=== PATIENT | male | born 1945 | race Caucasian/White ===

== ENCOUNTER → 2017-08-24 | Outpatient (CLI) | payer MEDICARE, OTHER ==
--- NOTE | 2017-08-24 12:25 | REP ---
UNILATERAL LEFT RIBS, PA CHEST, SIX VIEWS: HISTORY: Contusion. Linear densities are present in the right lower lobe, consistent with atelectasis or scar. The left lung is clear. The heart is normal in size. The pulmonary vasculature is normal in appearance. The bony structure is intact. IMPRESSION: Right lower lobe atelectasis or scar. Signed by Raul Tao MD 08/24/2017 12:26 P
== END ==
LOC: M WUC 11:09
PROVIDERS: ATTEND Physician Assistant
DX: S20.212A Contusion of left front wall of thorax, initial encounter (principal); X58.XXXA Exposure to other specified factors, initial encounter; Y93.9 Activity, unspecified; Y92.9 Unspecified place or not applicable; Y99.8 Other external cause status

== ENCOUNTER → 2018-06-01 | Outpatient (CLI) | payer OTHER | LOC: M WUC 09:36 | DX: M79.672 Pain in left foot (principal) | CPT/HCPCS: 73630 ==

== ENCOUNTER → 2018-08-13 | Outpatient (CLI) | payer OTHER ==
[2018-08-13 17:58] LABS: ANION GAP 8 MEQ/L (8-16); BLOOD UREA NITROGEN 15 MG/DL (7-18); CALCIUM LEVEL 8.3 MG/DL (8.8-10.2); CARBON DIOXIDE LEVEL 28 MEQ/L (21-32); CHLORIDE LEVEL 107 MEQ/L (98-107); CREATININE FOR GFR 0.98 MG/DL (0.70-1.30); GLOMERULAR FILTRATION RATE > 60.0 (>42); GLUCOSE, FASTING 108 MG/DL (70-100); POTASSIUM SERUM 4.2 MEQ/L (3.5-5.1); SODIUM LEVEL 143 MEQ/L (136-145)
== END ==
LOC: M WUC 13:27
DX: I10 Essential (primary) hypertension (principal)
CPT/HCPCS: 80048

== ENCOUNTER → 2019-03-14 | Outpatient (CLI) | payer OTHER ==
[2019-03-14 12:41] LABS: BASO % 0.1 % (0.0-1.0); HEMATOCRIT 33.7 % (42.0-52.0); HEMOGLOBIN 10.8 g/dl (13.5-17.5); LYMPH % 13.4 % (24.0-44.0); MEAN CORPUSCULAR HEMOGLOBIN 29.9 pg (27.0-33.0); MEAN CORPUSCULAR VOLUME 93.4 fl (80.0-96.0); MONO # 0.9 10^3/uL (0.0-0.8); MONO % 6.2 % (0.0-5.0); NEUTROPHILS # 12.1 10^3/uL (1.8-7.7); NEUTROPHILS % 79.7 % (36.0-66.0); PLATELET COUNT, AUTOMATED 249 10^3/uL (150-450); RED BLOOD COUNT 3.61 10^6/uL (4.30-6.10); WHITE BLOOD COUNT 15.2 10^3/uL (4.0-10.0)
[2019-03-14 13:35] LABS: ALBUMIN 3.8 GM/DL (3.2-5.2); BILIRUBIN,TOTAL 0.3 MG/DL (0.2-1.0); CALCIUM LEVEL 9.1 MG/DL (8.8-10.2); CHOLESTEROL RISK RATIO 3.615 (<5); CREATININE FOR GFR 1.62 MG/DL (0.70-1.30); GLOMERULAR FILTRATION RATE 44.6 (>42); POTASSIUM SERUM 4.3 MEQ/L (3.5-5.1); TOTAL PROTEIN 6.6 GM/DL (6.4-8.2)
[2019-03-14 14:39] LABS: HEMOGLOBIN A1c 7.8 %
== END ==
LOC: M WUC 11:05
DX: I25.10 Atherosclerotic heart disease of native coronary artery without angina pectoris (principal); E11.59 Type 2 diabetes mellitus with other circulatory complications

== ENCOUNTER 2019-04-29 10:56 | Outpatient (RCR) | payer OTHER ==
--- NOTE | 2019-04-17 10:12 | CARECAPL ---
Assessment Account #s: Initial Assessment General Diagnoses: CABG Date of event: Jan 07, 2019 Physician: Ellis Simon Date Entered Program: Apr 17, 2019 Risk strat for cardiac event: Low Exercise Date: Apr 17, 2019 Assessment: Initial Assessment Exercise Prescription Plan to educate about cardiac risk factors and to build endurance and strength through a monitored exercise program Modalities initiated: Treadmill (will add), Nustep (will add), Arm Aerometer (will add), Dumbells (will add), Recumbent Bike (will add) Frequency: 2-3 Duration (Minutes) 30-60 minutes total exercise a day. 8-15 work intervals in minutes. as needed - rest intervals in minutes. Functional Capacity Goal Sustained Metabolic Equivalent of a task (MET) goal of 2.5-3.5 for 15-20 minutes. Intensity: 3-Moderate Progression (METS) Increase by:.5 METS every: 2-3 sessions Resting 188/84 Meds see below Target Goals Individual exercise Rx (1) BP 140/90 or 130/80 if DM or CKD (1) Aerobic active 30+min 5 days per week (1) Nutrition Date: Apr 17, 2019 Assessment: Initial Assessment Lipid- med/supplement Atorvastatin Diabetes Diabetes: Yes Fasting Blood Sugar: 240 Diabetes medication insulin Monitor Blood Sugar at home: Yes Frequency daily Weight Management Weight (lbs): 266 Height (inches): 71 Waist Circumference (Inches): 56 BMI: 37.1 Weight goal: 240 Special Diet: regular Alcohol: none Diet Access Tool: Rate your plate (41) Score: 41 Intervention [employer] Consult: Yes Nurse/patient discussion: Yes Dietary Goals smaller portions and better choices Diet Class: Yes (will see during program) Referral to Diabetes education: Yes Referral to weight mangement p: Yes Education S&S hypo/hyper glycemia, Relate Diabetes in CAD, Eating Healthy Education Goals Met: No (will provide diabetic education during program. will see robotics systems engineer) Target goal LDL-C<100 if triglycerides are >200 Non-HDL-C should be <130 (1) LDL-C<70 for high risk patients (4) HbA1c<7% (1) BMI<25 Waist cir<40in M/<35in F (1) Education Date: Apr 17, 2019 Assessment: Initial Assessment Knowledge Test Score: 8 Family Support: Yes Tobacco use: No Quit: never smoked Tobacco Use Smokeless tobacco: No Intervention Referral to smoking cessation: No Individual education and couns: No Education class schedule given: Yes Education Goals Met: No Target Goals Complete cessation of tobacco use (1). Psychosocial Date: Apr 17, 2019 Assessment: Initial Assessment Psych Test (Initial/Discharge) Tool Used: CESD Score: 0 Intervention Physician Consult: No Physician Referral: No Stress Management Class: Yes Uses Stress Management Skills: Yes Education Goals Met: No Target Goal Assess presence or absence of depression using a valid screening tool (1). Maximize coping skills (2). Positive support system (2). Patient/Program Goal Preventative Medication: Yes Clopidogrel, Yes Beta blockade, Yes Statin/OTR lipid Lowering Fall Risk Assess: No (tug test 8 seconds) Provider Assessment Session Number: 1 Provider Assessment: Proceed with rehab Swati Tran RN Apr 17, 2019 10:12
[~2019-04-29 10:56] MED LIST: ALLO100T PO; AMLO25TA PO; ATOR40TA75 PO; BAYECHW PO; BETI1SOL OP; CARV25TA PO; CENT1TAB PO; CIDA500T2 PO; CLOTCRE3 TOP; FLON1SPR NARES; INSUHUMDS SC; LANTINJ4 SC; PRIL20TA2 PO; PROBOTICS; QC F0.52 PO
[2019-05-03] MEDS ORDERED: BACITAB PO (00:03)
[2019-05-03] MEDS ORDERED: ASPI1TAB8 PO (00:03)
[2019-05-03] MEDS ORDERED: GLUCTAB6 PO (00:03)
[2019-05-03] MEDS ORDERED: CLOT1CRE TOP (00:03)
[2019-05-03] MEDS ORDERED: FLON1SPR (00:03)
[2019-05-03] MEDS ORDERED: CARV25TA PO (00:03)
[2019-05-03] MEDS ORDERED: TIMO0.5S3 OU (00:03)
[2019-05-03] MEDS ORDERED: ATOR40TA75 PO (00:03)
[2019-05-03] MEDS ORDERED: AMLO5TAB6 PO (00:03)
[2019-05-03] MEDS ORDERED: ZYLO300T6 PO (00:03)
[2019-05-03] MEDS ORDERED: INSUHUMDS SC (00:04)
[2019-05-03] MEDS ORDERED: VITMTA PO (00:04)
[2019-05-03] MEDS ORDERED: LANTINJ4 SC (00:04)
[2019-05-03] MEDS ORDERED: OMEP-221 PO (00:04)
[2019-05-03] MEDS ORDERED: ELIQ5TAB PO (16:41)
== END 2019-05-05 ==
LOC: M CR 10:56
PROVIDERS: ATTEND Internal Medicine Advanced Heart Failure and Transplant Cardiology
DX: Z95.1 Presence of aortocoronary bypass graft (principal)

== ENCOUNTER 2019-05-02 17:28 | Inpatient (IN) | payer OTHER ==
[~2019-05-02] VITALS: Ht 180.3 cm; Wt 120.5 kg
[2019-05-02] MEDS: CARVedilol 12.5 MG TAB PO SCH (01:10)
[2019-05-02] MEDS: amLODIPine 5 MG TAB PO SCH (01:10)
[2019-05-02] MEDS: ASPIRIN 81 MG ENTERIC TAB PO SCH (01:10)
[2019-05-02] MEDS: ATORVASTATIN 20 MG TAB PO SCH (01:10)
--- NOTE | 2019-05-02 18:56 | REPVR ---
EXAM: US Duplex Left Lower Extremity Veins, Limited EXAM DATE/TIME: 05/02/2019 6:36 PM CLINICAL HISTORY: 73 years old, male; Pain; Leg, upper and leg, lower; Left; Additional info: Swelling left leg TECHNIQUE: Imaging protocol: Real-time Duplex ultrasound of the Left Lower Extremity with 2-D rider scale, color Doppler flow and spectral waveform analysis. Limited exam focused on the left lower extremity veins. COMPARISON: No relevant prior studies available. FINDINGS: Left deep veins: Hypoechoic, occlusive thrombus in the popliteal and posterior tibial veins. The common femoral and femoral veins are patent without thrombus. Left superficial veins: Unremarkable. Saphenofemoral junction is patent without thrombus. Soft tissues: Unremarkable. IMPRESSION: Hypoechoic, occlusive thrombus in the popliteal and posterior tibial veins. Electronically signed by: Steve Smiley On 05/02/2019 18:56:40 PM
[2019-05-02 19:51] LABS: BASO % 0.4 % (0.0-1.0); EOS # 0.2 10^3/uL (0.0-0.50); EOS % 1.9 % (0.0-3.0); HEMATOCRIT 41.1 % (42.0-52.0); HEMOGLOBIN 13.5 g/dl (13.5-17.5); LYMPH # 2.6 10^3/uL (1.5-4.5); LYMPH % 22.5 % (24.0-44.0); MEAN CORPUSCULAR HEMOGLOBIN 30.8 pg (27.0-33.0); MEAN CORPUSCULAR HGB CONC 32.8 g/dl (32.0-36.5); MEAN CORPUSCULAR VOLUME 93.8 fl (80.0-96.0); MONO # 0.9 10^3/uL (0.0-0.8); MONO % 7.9 % (0.0-5.0); NEUTROPHILS # 7.6 10^3/uL (1.8-7.7); NEUTROPHILS % 66.9 % (36.0-66.0); PLATELET COUNT, AUTOMATED 243 10^3/uL (150-450); RED BLOOD COUNT 4.38 10^6/uL (4.30-6.10); WHITE BLOOD COUNT 11.3 10^3/uL (4.0-10.0)
[2019-05-02 20:25] LABS: ALBUMIN 3.8 GM/DL (3.2-5.2); BILIRUBIN,DIRECT 0.1 MG/DL (0.0-0.2); BILIRUBIN,TOTAL 0.2 MG/DL (0.2-1.0); TOTAL PROTEIN 7.9 GM/DL (6.4-8.2)
[2019-05-02] MEDS ORDERED: ISOVUE-370 76% 100ML VIAL (Q9967) As Ordered ONE (20:58)
[2019-05-02] MEDS ORDERED: NS 1,000 ML IV ONE (21:00)
[2019-05-02 21:13] LABS: INR 1.04; PROTHROMBIN TIME 13.3 SECONDS (11.8-14.0)
--- NOTE | 2019-05-02 21:25 | REP ---
Clinical: Chest pain. Recent surgery. Technique: Axial contrast enhanced images from the thoracic inlet to the upper abdomen using pulmonary embolus protocol with 100 ml Isovue 370 intravenous contrast material including multiplanar re-formations. Findings: Satisfactory enhancement of the pulmonary vasculature is achieved. A very small nonocclusive thrombus is suggested in the third order branch vessels to the left lower lobe (images 82-89). The lung gomez demonstrate scattered ground-glass opacities suggesting bronchitis along with very minimal basilar atelectasis. No focal consolidation. No effusion. No pneumothorax. Tracheobronchial tree is patent. No significant adenopathy. Mediastinum demonstrates atherosclerotic changes to the thoracic aorta and coronary arteries without aortic aneurysm or cardiomegaly. No pericardial effusion. Surrounding musculoskeletal structures demonstrate age-related degenerative changes without focal osseous abnormality. Evidence of prior sternotomy. Impression: 1. Very subtle small suspected pulmonary emboli in the third order and distal order pulmonary arteries to the left lower lobe. 2. Chronic changes with findings to suggest mild bronchitis and trace atelectasis. No focal consolidation or effusion. Electronically Signed by Hang Ortega MD 05/02/2019 09:16 P
[2019-05-02] MEDS ORDERED: MAALOX 30 ML SUSP *UDC PO PRN (23:30)
[2019-05-02] MEDS ORDERED: MOM 30ML SUSPENSION UDC PO PRN (23:30)
[2019-05-02] MEDS ORDERED: APIXABAN 5 MG TAB (ELIQUIS) PO ONE (23:45)
[2019-05-03] MEDS ORDERED: LEVEMIR (INSULIN DETEMIR) 1 UNITS/0.01ML SC ONE
[2019-05-03] MEDS ORDERED: ATOR40TA75 PO (00:03)
[2019-05-03] MEDS ORDERED: ZYLO300T6 PO (00:03)
[2019-05-03] MEDS ORDERED: FLON1SPR (00:03)
[2019-05-03] MEDS ORDERED: CARV25TA PO (00:03)
[2019-05-03] MEDS ORDERED: GLUCTAB6 PO (00:03)
[2019-05-03] MEDS ORDERED: TIMO0.5S3 OU (00:03)
[2019-05-03] MEDS ORDERED: AMLO5TAB6 PO (00:03)
[2019-05-03] MEDS ORDERED: CLOT1CRE TOP (00:03)
[2019-05-03] MEDS ORDERED: ASPI1TAB8 PO (00:03)
[2019-05-03] MEDS ORDERED: BACITAB PO (00:03)
[2019-05-03] MEDS ORDERED: INSUHUMDS SC (00:04)
[2019-05-03] MEDS ORDERED: OMEP-221 PO (00:04)
[2019-05-03] MEDS ORDERED: LANTINJ4 SC (00:04)
[2019-05-03] MEDS ORDERED: VITMTA PO (00:04)
[2019-05-03] MEDS ORDERED: GLUCAGON FOR INJ 1 MG VIAL (J1610) SC PRN (00:15)
[2019-05-03] MEDS ORDERED: GLUCOSE 4 GM CHEW TABLET PO PRN (00:15)
[2019-05-03] MEDS ORDERED: PERCOCET 5MG/325MG TAB PO PRN (00:15)
[2019-05-03] MEDS ORDERED: DEXTROSE 50% 50 ML SYRINGE IV PRN (00:15)
[2019-05-03] MEDS: **hydrALAZINE HCL** 25 MG TAB PO SCH ×4 (01:10→18:00)
--- NOTE | 2019-05-03 01:26 | HPEPDOC ---
General Date of Admission May 02, 2019 at 23:30 Date of Service: May 02, 2019 Chief Complaint The patient is a 73-year-old male admitted with a reason for visit of Dvt Of Lt Lower Extremity,Pulmonary Embolism. Source: Patient Exam Limitations: No limitations Severity: Moderate History of Present Illness 73 year old male with PMH of CAD s/p CABG in january 2019 in [place], hypertension, gout, hyperlipidemia, diabetes, Leonid on CKD ( creatinine before surgery was 1.3) after surgery drove up from [place] in the first week of March to spend the summer up here and in [place]. Both of his legs were a little swollen left greater than left as the vein was taken from it but no pain. He started cardiac rehab here in [place] on April 18 the nurses told him that his legs were still swollen. Last week he started using the treadmill and after the session had severe calf pain so had to take tylenol the pain did not go away completely. On Monday he did not do the treadmill as the pain was persisting, did not go on Monday . The swelling of the left leg really increased this week and he was urged by his family and his erp business analyst in [place] to come to the ED. In the ED he was found to have a Left Hypoechoic, occlusive thrombus in the popliteal and posterior tibial veins. Subsequent CT angio of chest showed Very subtle small suspected pulmonary emboli in the third order and distal order pulmonary arteries to the left lower lobe. Chronic changes with findings to suggest mild bronchitis and trace atelectasis. No focal consolidation or effusion. pateint is admitted for Acute DVT and Pulmonary embolism. On my interview he complained of pain in his left calf. It was dull aching in nature, without any radiation and about 7/10 in intensity. The pain was causing problem with his walking and he was limping a little. Home Medications Scheduled Allopurinol (Zyloprim) 300 Mg Tablet, 300 MG PO DAILY, (Reported) Amlodipine Besylate (Amlodipine Besylate) 5 Mg Tablet, 5 MG PO BID, (Reported) Aspirin (Aspirin EC) 81 Mg Tablet.dr, 81 MG PO QHS, (Reported) Atorvastatin Calcium (Atorvastatin Calcium) 40 Mg Tablet, 40 MG PO QHS, (Reported) Carvedilol (Carvedilol) 25 Mg Tablet, 25 MG PO BID, (Reported) Gluc Leon/Chondro Leon A/Vit C/Mn (Glucosamine Chondroitin Tab) 1 Each Tablet, 1 TAB PO DAILY, (Reported) Insulin Glargine,Hum.rec.anlog (Lantus Solostar) 100 Unit/1 Ml Insuln.pen, 45 UNITS SC QHS, (Reported) Insulin Human Lispro (Humalog) 100 Unit/1 Ml Vial, 1 DOSE SC AC, (Reported) PER SLIDING SCALE <140= 21 UNITS; 141-160= 22 UNITS; 161-180= 23 UNITS; 181- 200= 24 UNITS; 201-220= 25 UNITS; 221-240= 26 UNITS; 241-260= 27 UNITS; 261-280= 28 UNITS; >280= 29 UNITS L.acidoph/L.bulg/B.bif/S.therm (Bacid Caplet) 1 Each Tablet, 1 TAB PO DAILY, (Reported) Multivitamins (Thera M Plus Tablet) 1 Each Tablet, 1 TAB PO DAILY, (Reported) Omeprazole (Omeprazole) 40 Mg Capsule.dr, 40 MG PO DAILY, (Reported) Timolol Maleate (Timoptic-Xe) 0.5% Adilia.gel, 1 DROP OU DAILY, (Reported) Scheduled PRN Clotrimazole (Clotrimazole) 1% 28GM Cream..g., 1 DOSE TOP BID PRN for ITCHING, (Reported) USING ON FEET FOR ATHLETE'S FOOT Fluticasone Propionate (Flonase Allergy Relief) 9.9 Ml [place].susp, 2 SPRAYS NA DAILY PRN for NASAL CONGESTION, (Reported) Allergies Coded Allergies: cefaclor (Verified Adverse Reaction, Mild, itchy, 05/02/19) Past Medical History Medical History cad s/p cabg in january 2019 in [place], hypertension, gout, hyperlipidemia, diabetes, Surgical History CABG, right retinal detachment surgery Family History Significant Family History: Cancer (father and mother), Heart disease (grand father) Social History * Smoker: non-smoker Alcohol: Denies Drugs: denies A-FIB/CHADSVASC A-FIB History Current/History of A-Fib/PAF?: No Review of Systems Constitutional: Denies: Chills, Fever, Night Sweats Eyes: Denies: Pain, Vision change ENT: Denies: Head Aches, Ear Pain, Dysphagia Skin: Denies: Rash, Lesions, Breakdown Pulmonary: Denies: Dyspnea, Cough Cardiovascular: Denies: Chest Pain, Palpitations, Orthopnea, Paroxysmal Noc. Dyspnea, Lt Headedness Gastrointestinal: Denies: Nausea, Vomiting, Abdominal Pain, Diarrhea Genitourinary: Denies: Dysuria, Frequency, Incontinence, Retention Hematologic: Reports: Bruising, Purpura Musculoskeletal: Reports: Leg Pain (left calf) Neurological: Denies: Weakness, Numbness, Change in speech, Confusion Psych: Reports: Mood Normal; Denies: Depression, Memory Issues Physical Examination General Exam: Positive: Alert, Cooperative, No Acute Distress Eye Exam: Positive: PERRLA, Conjunctiva & lids normal, EOMI; Negative: Sclera icteric ENT Exam: Positive: Atraumatic, Mucous membr. moist/pink, Pharynx Normal Neck Exam: Positive: Supple; Negative: JVD, thyromegaly Chest Exam: Positive: Clear to auscultation, Normal air movement Heart Exam: Positive: Rate Normal, Regular Rhythm, Normal S1, Normal S2, Mu rmurs (soft systolic murmur); Negative: Rubs Telemetry: Positive: No significant arrhythmia Abdomen Exam: Positive: Normal bowel sounds, Soft; Negative: Tenderness, Hepatospenomegaly Extremity Exam: Positive: Edema (bipedal edema left > right), Tenderness (left leg and calf), Swelling (left leg and calf) Skin Exam: Positive: Nl turgor and temperature; Negative: Breakdown, Lesion Neuro Exam: Positive: Normal Gait, Normal Speech, Cranial Nerves 3-12 NL, Reflexes 2+ Psych Exam: Positive: Mental status NL, Mood NL, Oriented x 3 Vital Signs Vital Signs Date Time Temp Pulse Resp B/P (MAP) Pulse Ox O2 Delivery O2 Flow Rate FiO2 05/02/19 23:51 160/72 (101) 05/02/19 22:12 98.1 73 18 99 Room Air Laboratory Data Labs 24H Laboratory Tests 2 05/02/19 19:33: POC Glucose (Misc Panel) 273H, POC Sodium (Misc Panel) 138, POC Potassium (Misc Panel) 5.0, POC Chloride (Misc Panel) 103, POC Total CO2 (Misc Panel) 25.0, POC Blood Urea Nitrogen (Misc Panel 34H, POC Ionized Calcium (Misc Panel) 4.5, POC Creatinine (Misc Panel) 1.5H, POC Hematocrit (Misc Panel) 42.0 05/02/19 19:39: Immature Granulocyte % (Auto) 0.4, White Blood Count 11.3H, Red Blood Count 4.38, Hemoglobin 13.5, Hematocrit 41.1L, Mean Corpuscular Volume 93.8, Mean Corpuscular Hemoglobin 30.8, Mean Corpuscular Hemoglobin Concent 32.8, Red Cell Distribution Width 13.4, Platelet Count 243, Neutrophils (%) (Auto) 66.9H, Lymphocytes (%) (Auto) 22.5L, Monocytes (%) (Auto) 7.9H, Eosinophils (%) (Auto) 1.9, Basophils (%) (Auto) 0.4, Neutrophils # (Auto) 7.6, Lymphocytes # (Auto) 2.6, Monocytes # (Auto) 0.9H, Eosinophils # (Auto) 0.2, Basophils # (Auto) 0.0, Nucleated Red Blood Cells % (auto) 0.0, Aspartate Amino Transf (AST/SGOT) 21, Alanine Aminotransferase (ALT/SGPT) 32, Alkaline Phosphatase 115, Total Bilirubin 0.2, Direct Bilirubin 0.1, Total Protein 7.9, Albumin 3.8, Albumin/Globulin Ratio 0.93L 05/02/19 20:56: Prothrombin Time 13.3, Prothromb Time International Ratio 1.04 CBC/BMP Laboratory Tests 05/02/19 19:39 Red Blood Count 4.38, Mean Corpuscular Volume 93.8, Mean Corpuscular Hemoglobin 30.8, Mean Corpuscular Hemoglobin Concent 32.8, Red Cell Distribution Width 13.4, Neutrophils (%) (Auto) 66.9 H, Lymphocytes (%) (Auto) 22.5 L, Monocytes (%) (Auto) 7.9 H, Eosinophils (%) (Auto) 1.9, Basophils (%) (Auto) 0.4, Neutrophils # (Auto) 7.6, Lymphocytes # (Auto) 2.6, Monocytes # (Auto) 0.9 H, Eosinophils # (Auto) 0.2, Basophils # (Auto) 0.0 Assessment/Plan 73 year old male with PMH of CAD s/p CABG in january 2019 in [place], hypertension, gout, hyperlipidemia, diabetes, Leonid on CKD ( creatinine before surgery was 1.3) after surgery, obesity drove up from [place] in the first week of March to spend the summer up here and in [place]. Both of his legs were a little swollen left greater than left as the vein was taken from it but no pain. He started cardiac rehab here in [place] on April 18 the nurses told him that his legs were still swollen. Last week he started using the treadmill and after the session had severe calf pain so had to take tylenol the pain did not go away completely. On Monday he did not do the treadmill as the pain was persisting, did not go on Monday . The swelling of the left leg really increased this week and he was urged by his family and his erp business analyst in [place] to come to the ED. In the ED he was found to have a Left Hypoechoic, o cclusive thrombus in the popliteal and posterior tibial veins. Subsequent CT angio of chest showed Very subtle small suspected pulmonary emboli in the third order and distal order pulmonary arteries to the left lower lobe. Chronic changes with findings to suggest mild bronchitis and trace atelectasis. No focal consolidation or effusion. pateint is admitted for Acute DVT and Pulmonary embolism. His plavix was stopped by his erp business analyst on 04/09/19. Left lower extremity DVT and Pulmonary embolism will send hypercoagulable work up start on Eliquis consider consulting Vascular for Occlusive thrombus in the popliteal and posterior tibial veins. pain control with percocet. Oxygen as needed LEONID on CKD still recovering renal function after surgery Creatinine before CABG was 1.3. Today at 1.5 patient received IV contrast today for CT angio Monitor for contrast nephropathy. renal function can again worsen over the next 48 hours. Pateint did get IVF before CT angio. No NSAIDS/ACEI /ARBs CAD s/p CABG continue asa, coreg, statin Hypertension poorly controlled continue coreg and amlodipine, will add hydralazine if needed will avoid ACEI and ARBS due to recent LEONID and contrast today Diabetes not controlled. will double the dose of levemir and use lispro hospital sliding scale. patient's home sliding scale is very high . With increasing the levemir I dont think he will need that high scale. Hyperlipidemia continue statin Gout continue allopurinol Plan / VTE VTE Prophylaxis Ordered?: Yes SURENDRA KAUR MD May 03, 2019 01:26
[2019-05-03] MEDS: PERCOCET 5MG/325MG TAB PO PRN ×2 (01:47→07:57)
[2019-05-03 07:06] LABS: BASO % 0.4 % (0.0-1.0); EOS # 0.1 10^3/uL (0.0-0.50); EOS % 1.8 % (0.0-3.0); HEMATOCRIT 33.9 % (42.0-52.0); HEMOGLOBIN 11.1 g/dl (13.5-17.5); LYMPH # 1.5 10^3/uL (1.5-4.5); LYMPH % 19.3 % (24.0-44.0); MEAN CORPUSCULAR HEMOGLOBIN 30.2 pg (27.0-33.0); MEAN CORPUSCULAR HGB CONC 32.7 g/dl (32.0-36.5); MEAN CORPUSCULAR VOLUME 92.1 fl (80.0-96.0); MONO # 0.7 10^3/uL (0.0-0.8); MONO % 8.9 % (0.0-5.0); NEUTROPHILS # 5.4 10^3/uL (1.8-7.7); NEUTROPHILS % 69.2 % (36.0-66.0); PLATELET COUNT, AUTOMATED 178 10^3/uL (150-450); RED BLOOD COUNT 3.68 10^6/uL (4.30-6.10); WHITE BLOOD COUNT 7.7 10^3/uL (4.0-10.0)
[2019-05-03 07:30] LABS: CALCIUM LEVEL 8.2 MG/DL (8.8-10.2); CREATININE FOR GFR 1.4 MG/DL (0.70-1.30); GLOMERULAR FILTRATION RATE 52.7 (>42); POTASSIUM SERUM 4.5 MEQ/L (3.5-5.1)
[2019-05-03] MEDS: HumaLOG INSULIN (NovoLOG) PER UNIT SC SCH ×4 (07:57→17:30)
[2019-05-03] MEDS: LEVEMIR (INSULIN DETEMIR) 1 UNITS/0.01ML SC SCH ×2 (09:00→10:04)
[2019-05-03] MEDS ORDERED: MULTIVITAMINS/MINERALS THERAP 1 TAB PO SCH (09:00)
[2019-05-03] MEDS ORDERED: OMEPRAZOLE 20 MG CAP PO SCH (09:00)
[2019-05-03] MEDS ORDERED: ALLOPURINOL 300 MG TAB PO SCH (09:00)
[2019-05-03] MEDS ORDERED: TIMOLOL XE GFS 0.5% OPHTH 5 ML OU SCH (09:00)
[2019-05-03] MEDS ORDERED: HumaLOG INSULIN (NovoLOG) PER UNIT SC ONE ×2 (09:45→14:00)
[2019-05-03] MEDS: DOCUSATE SODIUM 100 MG CAP PO SCH ×2 (10:01→19:52)
[2019-05-03] MEDS: CARVedilol 12.5 MG TAB PO SCH ×2 (10:01→19:51)
[2019-05-03] MEDS: amLODIPine 5 MG TAB PO SCH ×2 (10:02→19:51)
[2019-05-03] MEDS: APIXABAN 5 MG TAB (ELIQUIS) PO SCH ×2 (10:03→19:50)
[2019-05-03 15:27] VITALS: BP 145/66
[2019-05-03 16:00] VITALS: BP 150/70
[2019-05-03] MEDS ORDERED: SLF 3 ML SYR IV PRN (16:00)
[2019-05-03] MEDS ORDERED: ELIQ5TAB PO (16:41)
[2019-05-03] MEDS ORDERED: HumaLOG INSULIN (NovoLOG) PER UNIT SC SCH ×2 (17:30→21:00)
[2019-05-03] MEDS ORDERED: APIXABAN 5 MG TAB (ELIQUIS) PO ONE (19:00)
[2019-05-03 19:51] VITALS: BP 150/70
[2019-05-03] MEDS: ATORVASTATIN 20 MG TAB PO SCH (19:51)
[2019-05-03] MEDS: ASPIRIN 81 MG ENTERIC TAB PO SCH (19:51)
[2019-05-03] MEDS ORDERED: LEVEMIR (INSULIN DETEMIR) 1 UNITS/0.01ML SC SCH (21:00)
[2019-05-03] MEDS ORDERED: SLF 3 ML SYR IV SCH (22:00)
--- NOTE | 2019-05-04 13:31 | DS.PDOC ---
Discharge Summary General Date of Admission May 02, 2019 at 23:30 Date of Discharge 2819 Discharge Summary PROCEDURES PERFORMED DURING STAY: [None]. ADMITTING DIAGNOSES: 1. [DVT,PE]. DISCHARGE DIAGNOSES: 1. DVT/PE. COMPLICATIONS/CHIEF COMPLAINT: Dvt Of Lt Lower Extremity,Pulmonary Embolism. HISTORY OF PRESENT ILLNESS: [73 year old male with PMH of CAD s/p CABG in january 2019 in [place], hypertension, gout, hyperlipidemia, diabetes, Leonid on CKD ( creatinine before surgery was 1.3) after surgery drove up from [place] in the first week of March to spend the summer up here and in [place]. Both of his legs were a little swollen left greater than left as the vein was taken from it but no pain. He started cardiac rehab here in [place] on April 18 the nurses told him that his legs were still swollen. Last week he started using the treadmill and after the session had severe calf pain so had to take tylenol the pain did not go away completely. On Monday he did not do the treadmill as the pain was persisting, did not go on Monday . The swelling of the left leg really increased this week and he was urged by his family and his sewing machine bobbin winder in [place] to come to the ED. In the ED he was found to have a Left Hypoechoic, occlusive thrombus in the popliteal and posterior tibial veins. Subsequent CT angio of chest showed Very subtle small suspected pulmonary emboli in the third order and distal order pulmonary arteries to the left lower lobe. Chronic changes with findings to suggest mild bronchitis and trace atelectasis. No focal consolidation or effusion. pateint is admitted for Acute DVT and Pulmonary embolism. On my interview he complained of pain in his left calf. It was dull aching in nature, without any radiation and about 7/10 in intensity. The pain was causing problem with his walking and he was limping a little. ]. HOSPITAL COURSE: [Pt was found to have a DVT in his left leg and a subsegmental PE. He was started on eliquis and given a compression stocking for his left leg. He was educated on the diagnosis, natural course, and treatment plan. He was requesting to be discharged as soon as possible. He was PESI class two which is low risk and ok for outpatient management. Discharge planning took extended efforts to ensure his pharmacy had eliquis in stock and that it would be affordable]. DISCHARGE MEDICATIONS: Please see below. ALLERGIES: Please see below. PHYSICAL EXAMINATION ON DISCHARGE: VITAL SIGNS: Please see below. GENERAL: [comfortable, no apparent distress] HEENT: [normocephalic, atraumatic, EOMI, PERRL] NECK: [supple, no jvd] CARDIOVASCULAR EXAMINATION: [s1s2 no murmurs, regular rate and rhythm] RESPIRATORY EXAMINATION: [cta bilaterally with good air movement, unlabored] ABDOMINAL EXAMINATION: [soft nontender nondistended] EXTREMITIES: [left leg swollen] SKIN: [no rash, no lesion] NEUROLOGICAL EXAMINATION: [no focal deficit] PSYCHIATRIC EXAMINATION: [A+Ox3 nl mood and affect] LABORATORY DATA: Please see below. ACTIVITY: [As tolerated]. DIET: [diabetic] DISCHARGE PLAN: [pt chooses to follow with his sewing machine bobbin winder regarding management of his dvt] DISPOSITION: Home, Self-Care. DISCHARGE CONDITION: [Stable]. TIME SPENT ON DISCHARGE: Greater than [120] minutes. On admission it was believed that pt was willing to stay for a two midnight stay, however he changed his mind Vital Signs/I&Os Vital Signs Date Time Temp Pulse Resp B/P (MAP) Pulse Ox O2 Delivery O2 Flow Rate FiO2 05/03/19 19:51 70 150/70 05/03/19 16:00 97.5 18 97 05/03/19 14:55 Room Air I&O- Last 24 Hours up to 6 AM 05/04/19 06:00 Intake Total 0 ml Balance 0 ml Laboratory Data Labs 24H Laboratory Tests 2 05/03/19 18:04: Bedside Glucose (Misc Panel) 53L 05/03/19 19:51: Bedside Glucose (Misc Panel) 155H FSBS Laboratory Tests Test 05/03/19 18:04 05/03/19 19:51 Range/Units Bedside Glucose (Misc Panel) 53 155 83-110 MG/DL Discharge Medications Scheduled Allopurinol (Zyloprim) 300 Mg Tablet, 300 MG PO DAILY, (Reported) Amlodipine Besylate (Amlodipine Besylate) 5 Mg Tablet, 5 MG PO BID, (Reported) Apixaban (Eliquis) 5 Mg Tablet, 2 TAB PO BID take 2 tabs by mouth twice daily for six days, then take one tab by mouth twice daily for the rest of the month Aspirin (Aspirin EC) 81 Mg Tablet.dr, 81 MG PO QHS, (Reported) Atorvastatin Calcium (Atorvastatin Calcium) 40 Mg Tablet, 40 MG PO QHS, (Reported) Carvedilol (Carvedilol) 25 Mg Tablet, 25 MG PO BID, (Reported) Gluc Leon/Chondro Leon A/Vit C/Mn (Glucosamine Chondroitin Tab) 1 Each Tablet, 1 TAB PO DAILY, (Reported) Insulin Glargine,Hum.rec.anlog (Lantus Solostar) 100 Unit/1 Ml Insuln.pen, 45 UNITS SC QHS, (Reported) Insulin Human Lispro (Humalog) 100 Unit/1 Ml Vial, 1 DOSE SC AC, (Reported) PER SLIDING SCALE <140= 21 UNITS; 141-160= 22 UNITS; 161-180= 23 UNITS; 181- 200= 24 UNITS; 201-220= 25 UNITS; 221-240= 26 UNITS; 241-260= 27 UNITS; 261-280= 28 UNITS; >280= 29 UNITS L.acidoph/L.bulg/B.bif/S.therm (Bacid Caplet) 1 Each Tablet, 1 TAB PO DAILY, (Reported) Multivitamins (Thera M Plus Tablet) 1 Each Tablet, 1 TAB PO DAILY, (Reported) Omeprazole (Omeprazole) 40 Mg Capsule.dr, 40 MG PO DAILY, (Reported) Timolol Maleate (Timoptic-Xe) 0.5% [place].gel, 1 DROP OU DAILY, (Reported) Scheduled PRN Clotrimazole (Clotrimazole) 1% 28GM Cream..g., 1 DOSE TOP BID PRN for ITCHING, (Reported) USING ON FEET FOR ATHLETE'S FOOT Fluticasone Propionate (Flonase Allergy Relief) 9.9 Ml [place].susp, 2 SPRAYS NA DAILY PRN for NASAL CONGESTION, (Reported) Allergies Coded Allergies: cefaclor (Verified Adverse Reaction, Mild, itchy, 05/02/19) ROSALINA PETTIT MD May 04, 2019 13:31
[2019-05-05 00:07] LABS: ANTINUCLEAR ANTIBODIES DIRECT Negative (Negative)
== END 2019-05-03 20:43 | disposition home or self-care (01) | DRG 299 ==
LOC: M ED 17:28 → M ED INP 23:30 → M PCU 05-03 15:05
PROVIDERS: ADMIT Internal Medicine Nephrology; ATTEND Hospitalist
DX: I82.432 Acute embolism and thrombosis of left popliteal vein (principal); I26.99 Other pulmonary embolism without acute cor pulmonale; N17.9 Acute kidney failure, unspecified; I82.442 Acute embolism and thrombosis of left tibial vein; I25.10 Atherosclerotic heart disease of native coronary artery without angina pectoris; Z95.1 Presence of aortocoronary bypass graft; I12.9 Hypertensive chronic kidney disease with stage 1 through stage 4 chronic kidney disease, or unspecified chronic kidney disease; E78.5 Hyperlipidemia, unspecified; E11.9 Type 2 diabetes mellitus without complications; N18.9 Chronic kidney disease, unspecified; Z79.82 Long term (current) use of aspirin; Z79.899 Other long term (current) drug therapy; Z79.4 Long term (current) use of insulin

== ENCOUNTER → 2019-05-12 | Outpatient (CLI) | payer OTHER ==
[~2019-05-12] MED LIST changes: +AMLO5TAB6 PO; +ASPI1TAB8 PO; +BACITAB PO; +CLOT1CRE TOP; +ELIQ5TAB PO; +FLON1SPR; +GLUCTAB6 PO; +OMEP-221 PO; +TIMO0.5S3 OU; +VITMTA PO; +ZYLO300T6 PO
[2019-05-12 17:30] LABS: BASO # 0.1 10^3/uL (0.0-0.2); BASO % 0.6 % (0.0-1.0); EOS # 0.2 10^3/uL (0.0-0.50); EOS % 1.3 % (0.0-3.0); HEMATOCRIT 38.5 % (42.0-52.0); HEMOGLOBIN 12.4 g/dl (13.5-17.5); LYMPH # 2.3 10^3/uL (1.5-4.5); LYMPH % 18.8 % (24.0-44.0); MEAN CORPUSCULAR HEMOGLOBIN 29.7 pg (27.0-33.0); MEAN CORPUSCULAR HGB CONC 32.2 g/dl (32.0-36.5); MEAN CORPUSCULAR VOLUME 92.1 fl (80.0-96.0); MONO # 0.9 10^3/uL (0.0-0.8); MONO % 7.3 % (0.0-5.0); NEUTROPHILS # 8.9 10^3/uL (1.8-7.7); NEUTROPHILS % 71.7 % (36.0-66.0); PLATELET COUNT, AUTOMATED 281 10^3/uL (150-450); RED BLOOD COUNT 4.18 10^6/uL (4.30-6.10); WHITE BLOOD COUNT 12.4 10^3/uL (4.0-10.0)
[2019-05-12 17:38] LABS: ALBUMIN 3.6 GM/DL (3.2-5.2); BILIRUBIN,TOTAL 0.4 MG/DL (0.2-1.0); CALCIUM LEVEL 8.6 MG/DL (8.8-10.2); CREATININE FOR GFR 1.42 MG/DL (0.70-1.30); GLOMERULAR FILTRATION RATE 51.9 (>42); POTASSIUM SERUM 4.6 MEQ/L (3.5-5.1); TOTAL PROTEIN 6.9 GM/DL (6.4-8.2)
== END ==
LOC: M WUC 11:09
PROVIDERS: ATTEND Internal Medicine Advanced Heart Failure and Transplant Cardiology
DX: I25.10 Atherosclerotic heart disease of native coronary artery without angina pectoris (principal)

== ENCOUNTER 2019-06-03 12:32 | Outpatient (RCR) | payer OTHER ==
--- NOTE | 2019-05-16 17:10 | CARECAPL ---
Assessment Account #s: Re-Assessment I General Diagnoses: CABG Date of event: Jan 07, 2019 Physician: Ellis Simon Allergies: Coded Allergies: cefaclor (Verified Adverse Reaction, Mild, itchy, 05/02/19) Date Entered Program: Apr 17, 2019 Risk strat for cardiac event: High Exercise Date: May 16, 2019 Assessment: Re-Assessment I Exercise Prescription Plan TO EDUCATE AND BUILD ENDURANCE THROUGH MONITORED EXERCISE Modalities initiated: Treadmill (METS=2.81/RPE=3), Nustep (METS=3.2/RPE=3.5), Recumbent Bike (METS=2.6/RPE=3.5) Frequency: 3 Duration (Minutes) 30-60 minutes total exercise a day. 10-15 work intervals in minutes. 5 MIN rest intervals in minutes. Functional Capacity Goal Sustained Metabolic Equivalent of a task (MET) goal of 2.75-3.5 for 15-20 minutes. Intensity: 3-Moderate Progression (METS) Increase by: METS every: sessions Angina with ex: No Target Heart Rate REST+ 35-40 Resistance Training: Yes (WILL ADD) Weight (pounds): 1 Reps: 8-12 Hypertension: Yes Hypertension controlled with: Medication Resting 122/74 Peak Exercise BP 142/80 Medications Scheduled Allopurinol (Zyloprim), 300 MG PO DAILY, (Reported) Amlodipine Besylate (Amlodipine Besylate), 5 MG PO BID, (Reported) Apixaban (Eliquis), 2 TAB PO BID Aspirin (Aspirin EC), 81 MG PO QHS, (Reported) Atorvastatin Calcium (Atorvastatin Calcium), 40 MG PO QHS, (Reported) Carvedilol (Carvedilol), 25 MG PO BID, (Reported) Gluc Leon/Chondro Leon A/Vit C/Mn (Glucosamine Chondroitin Tab), 1 TAB PO DAILY, (Reported) Insulin Glargine,Hum.rec.anlog (Lantus Solostar), 45 UNITS SC QHS, (Reported) Insulin Human Lispro (Humalog), 1 DOSE SC AC, (Reported) L.acidoph/L.bulg/B.bif/S.therm (Bacid Caplet), 1 TAB PO DAILY, (Reported) Multivitamins (Thera M Plus Tablet), 1 TAB PO DAILY, (Reported) Omeprazole (Omeprazole), 40 MG PO DAILY, (Reported) Timolol Maleate (Timoptic-Xe), 1 DROP OU DAILY, (Reported) Scheduled PRN Clotrimazole (Clotrimazole), 1 DOSE TOP BID PRN for ITCHING, (Reported) Fluticasone Propionate (Flonase Allergy Relief), 2 SPRAYS NA DAILY PRN for NASAL CONGESTION, (Reported) Current BP 132/78 Med Change: No Intervention Resistance Training: Yes Education: Self pulse, Ex safety, S/S to report, Low NA diet, BP medication, RPE Scale, Equipment orientation, warm up/cool down, Understand BP, Physical Active Target Goals Individual exercise Rx (1) BP 140/90 or 130/80 if DM or CKD (1) Aerobic active 30+min 5 days per week (1) Nutrition Date: May 16, 2019 Assessment: Re-Assessment I Lipid- med/supplement ATORVASTATIN 40 MG AT HS Med Change: No Diabetes Diabetes: Yes Diabetes medication LANTUS/HUMALOG Monitor Blood Sugar at home: Yes Frequency DAILY Medication Change: No Weight Management Weight (lbs): 268.6 Weight goal: 240 Special Diet: regular Intervention Briquetter Operator Consult: No Nurse/patient discussion: Yes Dietary Goals TO MAKE HEART HEALTHY CHOICES Diet Class: Yes (WILL SEE QUARTER LINING SMOOTHER WHILE IN PROGRAM) Referral to Diabetes education: No Referral to lipid clinic: No Referral to weight mangement p: No Education S&S hypo/hyper glycemia, Relate Diabetes in CAD, Eating Healthy Target goal LDL-C<100 if triglycerides are >200 Non-HDL-C should be <130 (1) LDL-C<70 for high risk patients (4) HbA1c<7% (1) BMI<25 Waist cir<40in M/<35in F (1) Education Date: May 16, 2019 Assessment: Re-Assessment I Learning Barriers: ready Family Support: Yes Tobacco use: No Tobacco Use Smokeless tobacco: No Intervention Referral to smoking cessation: No Individual education and couns: No Tobacco Adjunct: No Education class schedule given: No Attended education classes: No Education: CAD, Risk factors, med compliance, cardiac A&P, Angina S/S, Sexuality Target Goals Complete cessation of tobacco use (1). Psychosocial Date: May 16, 2019 Assessment: Re-Assessment I Intervention Physician Consult: No Physician Referral: No Med Change: No Stress Management Class: No Uses Stress Management Skills: Yes Education Education: Coping Techniques, S/S depression, Relaxation Techniques Target Goal Assess presence or absence of depression using a valid screening tool (1). Maximize coping skills (2). Positive support system (2). Patient/Program Goal Preventative Medication: Yes Clopidogrel, Yes Beta blockade, Yes Statin/OTR lipid Lowering Fall Risk Assess: No (NOT A FALL RISK) Provider Assessment Session Number: 4 Provider Assessment: Proceed with rehab Laz Degroot RN May 16, 2019 17:10
== END 2019-06-05 ==
LOC: M CR 12:32
PROVIDERS: ATTEND Internal Medicine Advanced Heart Failure and Transplant Cardiology
DX: Z95.1 Presence of aortocoronary bypass graft (principal)

== ENCOUNTER 2019-07-05 11:17 | Outpatient (RCR) | payer OTHER ==
--- NOTE | 2019-06-12 10:21 | CARECAPL ---
Assessment Account #s: Re-Assessment II General Diagnoses: CABG Date of event: Jan 07, 2019 Physician: Ellis Simon Allergies: Coded Allergies: cefaclor (Verified Adverse Reaction, Mild, itchy, 05/02/19) Date Entered Program: Apr 17, 2019 Risk strat for cardiac event: High Exercise Date: Jun 12, 2019 Assessment: Re-Assessment II Exercise Prescription Plan to build exercise and endurance through a monitored exercise program. To educate about the risk of cardiac disease Modalities initiated: Treadmill (2.0/2.0 mts 3.08 rpe 3.5 11 minues), Nustep (level 4 mts 4.2 rpe 3 15 minutes), Arm Aerometer (2.0 mts 3.1 rpe 3 10 minutes), Dumbells, Recumbent Bike (r2 mts 3.2 rpe 3.5) Duration (Minutes) minutes total exercise a day. work intervals in minutes. rest intervals in minutes. Functional Capacity Goal Sustained Metabolic Equivalent of a task (MET) goal of 4.5-5.5 for 15-20 minutes. Progression (METS) Increase by: METS every: sessions Angina with ex: No Resistance Training: Yes Weight (pounds): 3.0 Reps: 8-12 Medications Scheduled Allopurinol (Zyloprim), 300 MG PO DAILY, (Reported) Amlodipine Besylate (Amlodipine Besylate), 5 MG PO BID, (Reported) Apixaban (Eliquis), 2 TAB PO BID Aspirin (Aspirin EC), 81 MG PO QHS, (Reported) Atorvastatin Calcium (Atorvastatin Calcium), 40 MG PO QHS, (Reported) Carvedilol (Carvedilol), 25 MG PO BID, (Reported) Gluc Leon/Chondro Leon A/Vit C/Mn (Glucosamine Chondroitin Tab), 1 TAB PO DAILY, (Reported) Insulin Glargine,Hum.rec.anlog (Lantus Solostar), 45 UNITS SC QHS, (Reported) Insulin Human Lispro (Humalog), 1 DOSE SC AC, (Reported) L.acidoph/L.bulg/B.bif/S.therm (Bacid Caplet), 1 TAB PO DAILY, (Reported) Multivitamins (Thera M Plus Tablet), 1 TAB PO DAILY, (Reported) Omeprazole (Omeprazole), 40 MG PO DAILY, (Reported) Timolol Maleate (Timoptic-Xe), 1 DROP OU DAILY, (Reported) Scheduled PRN Clotrimazole (Clotrimazole), 1 DOSE TOP BID PRN for ITCHING, (Reported) Fluticasone Propionate (Flonase Allergy Relief), 2 SPRAYS NA DAILY PRN for NASAL CONGESTION, (Reported) Current BP 130/58 Med Change: No Intervention Home exercise: Type (walking, hand weights, join local gym), Frequency (5-7 times per week), Duration (30-60 minutes) Resistance Training: Yes Education: Self pulse (location of pulse and time, ), Ex safety (don't use phone, hydrate), S/S to report (dizziness, chest pain, other abn pain, abnormal sob), Low NA diet (covered with personnel research scientist), BP medication (taking medications, monitoring side effects and BP), RPE Scale (1-5 scale used in cardiac rehab), Equipment orientation (review of each piece of equipment and function), warm up/cool down (to prevent injury and to return v/s to baseline), Understand BP (what is your normal baseline), Physical Active (to help prevent further cardiac issues) Education Goals Met: No (progressing toward goals) Target Goals Individual exercise Rx (1) BP 140/90 or 130/80 if DM or CKD (1) Aerobic active 30+min 5 days per week (1) Nutrition Date: Jun 12, 2019 Assessment: Re-Assessment II Med Change: No Diabetes Diabetes: Yes Special Diet: other (consistant carbs) Vitamin/Supplements: Other Current Weight (pounds): 273 Weight Goal 200 Referral to Diabetes education: No Referral to lipid clinic: No Referral to weight mangement p: No Education S&S hypo/hyper glycemia (review s/s of this), Relate Diabetes in CAD (education sheets given) Education Goals Met: No (progressing toward goals) Target goal LDL-C<100 if triglycerides are >200 Non-HDL-C should be <130 (1) LDL-C<70 for high risk patients (4) HbA1c<7% (1) BMI<25 Waist cir<40in M/<35in F (1) Education Date: Jun 12, 2019 Assessment: Re-Assessment II Intervention Referral to smoking cessation: No Individual education and couns: No Tobacco Adjunct: No Education class schedule given: Yes Attended education classes: Yes Education: Risk factors (diabetes as a risk factor), cardiac A&P (reviewed), Angina S/S (s/s to report) Education Goals Met: No (progressing toward goals) Target Goals Complete cessation of tobacco use (1). Psychosocial Date: Jun 12, 2019 Assessment: Re-Assessment II Intervention Physician Consult: No Physician Referral: No Stress Management Class: Yes Uses Stress Management Skills: Yes Education Goals Met: No (progressing toward goals) Target Goal Assess presence or absence of depression using a valid screening tool (1). Maximize coping skills (2). Positive support system (2). Provider Assessment Session Number: 14 Provider Assessment: No changes Swati Tran RN Jun 12, 2019 10:21
[~2019-07-05 11:17] MED LIST changes: +LISI-1046 PO
--- NOTE | 2019-07-10 14:37 | CARECAPL ---
Assessment Account #s: Re-Assessment II (III) General Diagnoses: CABG Date of event: Jan 07, 2019 Physician: Ellis Simon Allergies: Coded Allergies: cefaclor (Verified Adverse Reaction, Mild, itchy, 05/02/19) Date Entered Program: Apr 17, 2019 Risk strat for cardiac event: High Exercise Assessment: Re-Assessment II (III) Stages of change: Contemplate Exercise Prescription Modalities initiated: Treadmill (2.0/2.0 mts 3.4 rpe 4.5 13 minutes), Nustep ( L5 mts 4.5 rpe 3 15 minutes), Arm Aerometer (2.5 mts 2.4 rpe 3 10 minutes), Recumbent Bike ( L3 mts 3.4 rpe 3 8 minutes) Frequency: 2-3 Duration (Minutes) 30 - 60 minutes total exercise a day. 15 - 20 work intervals in minutes. PRN rest intervals in minutes. Functional Capacity Goal Sustained Metabolic Equivalent of a task (MET) goal of 4.5-5.5 for 15-20 minutes. Intensity: 3-Moderate Progression (METS) Increase by: METS every: sessions Angina with ex: No Resistance Training: Yes Weight (pounds): 4 Reps: 8-12 Resting 160/82 Peak Exercise BP 184/84 Medications Scheduled Allopurinol (Zyloprim), 300 MG PO DAILY, (Reported) Amlodipine Besylate (Amlodipine Besylate), 5 MG PO BID, (Reported) Apixaban (Eliquis), 2 TAB PO BID Aspirin (Aspirin EC), 81 MG PO QHS, (Reported) Atorvastatin Calcium (Atorvastatin Calcium), 40 MG PO QHS, (Reported) Carvedilol (Carvedilol), 25 MG PO BID, (Reported) Gluc Leon/Chondro Leon A/Vit C/Mn (Glucosamine Chondroitin Tab), 1 TAB PO DAILY, (Reported) Insulin Glargine,Hum.rec.anlog (Lantus Solostar), 45 UNITS SC QHS, (Reported) Insulin Human Lispro (Humalog), 1 DOSE SC AC, (Reported) L.acidoph/L.bulg/B.bif/S.therm (Bacid Caplet), 1 TAB PO DAILY, (Reported) Lisinopril (Lisinopril), 2.5 MG PO DAILY, (Reported) Multivitamins (Thera M Plus Tablet), 1 TAB PO DAILY, (Reported) Omeprazole (Omeprazole), 40 MG PO DAILY, (Reported) Timolol Maleate (Timoptic-Xe), 1 DROP OU DAILY, (Reported) Scheduled PRN Clotrimazole (Clotrimazole), 1 DOSE TOP BID PRN for ITCHING, (Reported) Fluticasone Propionate (Flonase Allergy Relief), 2 SPRAYS NA DAILY PRN for NASAL CONGESTION, (Reported) Current BP 118/60 Med Change: No Intervention Home exercise: Type (Home exercise program given on 05/17/3019) Resistance Training: Yes Education Goals Met: No (progressing toward goals) Target Goals Individual exercise Rx (1) BP 140/90 or 130/80 if DM or CKD (1) Aerobic active 30+min 5 days per week (1) Nutrition Date: Jul 10, 2019 Assessment: Re-Assessment II (III) Stages of change: relapse Diabetes Diabetes: Yes Current Weight (pounds): 273 Weight Goal 225 Intervention Diet Class: Yes (saw home mission worker on 07/01/2019) Target goal LDL-C<100 if triglycerides are >200 Non-HDL-C should be <130 (1) LDL-C<70 for high risk patients (4) HbA1c<7% (1) BMI<25 Waist cir<40in M/<35in F (1) Education Date: Jul 10, 2019 Education Goals Met: No (progressing toward goals. see previous ITP for all education on pt) Target Goals Complete cessation of tobacco use (1). Psychosocial Date: Jul 10, 2019 Assessment: Re-Assessment II (III) Stress Management Class: Yes Uses Stress Management Skills: Yes Education Goals Met: Yes (see previous ITP for education) Target Goal Assess presence or absence of depression using a valid screening tool (1). Maximize coping skills (2). Positive support system (2). Provider Assessment Session Number: 21 Provider Assessment: No changes Swati Tran RN Jul 10, 2019 12:23
== END 2019-07-06 ==
LOC: M CR 11:17
PROVIDERS: ATTEND Internal Medicine Advanced Heart Failure and Transplant Cardiology
DX: Z95.1 Presence of aortocoronary bypass graft (principal)

== ENCOUNTER → 2019-07-26 | Outpatient (CLI) | payer OTHER ==
[2019-07-26 14:56] LABS: CALCIUM LEVEL 9.1 MG/DL (8.8-10.2); CREATININE FOR GFR 1.61 MG/DL (0.70-1.30); GLOMERULAR FILTRATION RATE 44.8 (>42); POTASSIUM SERUM 4.8 MEQ/L (3.5-5.1)
== END ==
LOC: M WUC 10:57
DX: R79.89 Other specified abnormal findings of blood chemistry (principal); I10 Essential (primary) hypertension

== ENCOUNTER 2019-08-02 10:18 | Outpatient (RCR) | payer OTHER | END 2019-08-05 | LOC: M CR 10:18 | PROVIDERS: ATTEND Internal Medicine Advanced Heart Failure and Transplant Cardiology | DX: Z95.1 Presence of aortocoronary bypass graft (principal) ==

== ENCOUNTER → 2019-08-06 | Outpatient (CLI) | payer OTHER ==
[2019-08-06 17:26] LABS: APPEARANCE, URINE CLEAR (CLEAR); BACTERIA, URINE AUTO NEGATIVE (NEGATIVE); BILIRUBIN, URINE AUTO NEGATIVE (NEGATIVE); BLOOD, URINE BLOOD NEGATIVE (NEGATIVE); COLOR, URINE YELLOW (YELLOW); GLUCOSE, URINE (UA) AUTO NEGATIVE (NEGATIVE); KETONE, URINE AUTO NEGATIVE (NEGATIVE); LEUKOCYTE ESTERASE, URINE AUTO NEGATIVE (NEGATIVE); NITRITE, URINE AUTO NEGATIVE (NEGATIVE); PROTEIN, URINE AUTO 1+ mg/dL (NEGATIVE); RBC, URINE AUTO 2 /HPF (0-3); SPECIFIC GRAVITY URINE AUTO 1.017 (1.002-1.035); SQUAMOUS EPITHELIAL CELL UR AU 0 /HPF (0-6); UROBILINOGEN, URINE AUTO 0.2 mg/dL (0.0-2.0); WBC, URINE AUTO 1 /HPF (0-3)
[2019-08-06 17:31] LABS: BASO # 0.1 10^3/uL (0.0-0.2); BASO % 0.6 % (0.0-1.0); EOS # 0.1 10^3/uL (0.0-0.5); EOS % 1.3 % (0.0-3.0); HEMATOCRIT 37.3 % (42.0-52.0); HEMOGLOBIN 12.1 g/dl (13.5-17.5); LYMPH # 2.1 10^3/uL (1.5-5.0); LYMPH % 23.6 % (24.0-44.0); MEAN CORPUSCULAR HEMOGLOBIN 30.9 pg (27.0-33.0); MEAN CORPUSCULAR HGB CONC 32.4 g/dl (32.0-36.5); MEAN CORPUSCULAR VOLUME 95.2 fl (80.0-96.0); MONO # 0.7 10^3/uL (0.0-0.8); MONO % 8.5 % (0.0-5.0); NEUTROPHILS # 5.7 10^3/uL (1.5-8.5); NEUTROPHILS % 65.5 % (36.0-66.0); PLATELET COUNT, AUTOMATED 219 10^3/uL (150-450); RED BLOOD COUNT 3.92 10^6/uL (4.30-6.10); WHITE BLOOD COUNT 8.7 10^3/uL (4.0-10.0)
[2019-08-06 17:42] LABS: ALBUMIN 3.4 GM/DL (3.2-5.2); BILIRUBIN,TOTAL 0.4 MG/DL (0.2-1.0); CALCIUM LEVEL 9.1 MG/DL (8.8-10.2); CHOLESTEROL RISK RATIO 2.673 (<5); CREATININE FOR GFR 1.57 MG/DL (0.70-1.30); GLOMERULAR FILTRATION RATE 46.1 (>42); POTASSIUM SERUM 4.9 MEQ/L (3.5-5.1); THYROID STIMULATING HORMONE 0.958 uIU/ML (0.358-3.740); TOTAL PROTEIN 6.5 GM/DL (6.4-8.2)
== END ==
LOC: M WUC 12:08
PROVIDERS: ATTEND Family Medicine
DX: Z00.00 Encounter for general adult medical examination without abnormal findings (principal); I10 Essential (primary) hypertension; E78.5 Hyperlipidemia, unspecified
CPT/HCPCS: 36415; 80053; 80061; 81001; 84443; 85025; G0103

== ENCOUNTER 2019-08-07 10:07 | Outpatient (RCR) | payer OTHER ==
--- NOTE | 2019-08-07 14:50 | CARECAPL ---
Assessment Account #s: Discharge General Diagnoses: CABG Date of event: Jan 07, 2019 Physician: Ellis Simon Allergies: Coded Allergies: cefaclor (Verified Adverse Reaction, Mild, itchy, 05/02/19) Date Entered Program: Apr 17, 2019 Risk strat for cardiac event: High Exercise Date: Aug 07, 2019 Assessment: Followup/Discharge Stages of change: Preperation Exercise Prescription Plan TO EDUCATE AND BUILD ENDURANCE THROUGH MONITORED EXERCISE Modalities initiated: Treadmill (METS=3.60/RPE=3.5), Nustep (METS=4.3/RPE=3.5), Arm Aerometer (METS=2.3/RPE=3), Dumbells (5#/RPE=3.5), Recumbent Bike (METS=4.9/RPE=3.5) Frequency: 3 Duration (Minutes) 30 - 60 minutes total exercise a day. 15 - 20 work intervals in minutes. PRN rest intervals in minutes. Functional Capacity Goal Sustained Metabolic Equivalent of a task (MET) goal of 4.5-5.5 for 15-20 minutes. Intensity: 3-Moderate Progression (METS) Increase by: METS every: sessions Angina with ex: No Target Heart Rate REST +35-40 Resistance Training: Yes Weight (pounds): 5 Reps: 12-15 Hypertension: Yes Hypertension controlled with: Medication (NORVASC,CARVEDILOL,LISINOPRIL) Resting 128/78 Peak Exercise BP 150/84 Medications Scheduled Allopurinol (Zyloprim), 300 MG PO DAILY, (Reported) Amlodipine Besylate (Amlodipine Besylate), 5 MG PO BID, (Reported) Apixaban (Eliquis), 2 TAB PO BID Aspirin (Aspirin EC), 81 MG PO QHS, (Reported) Atorvastatin Calcium (Atorvastatin Calcium), 40 MG PO QHS, (Reported) Carvedilol (Carvedilol), 25 MG PO BID, (Reported) Gluc Leon/Chondro Leon A/Vit C/Mn (Glucosamine Chondroitin Tab), 1 TAB PO DAILY, (Reported) Insulin Glargine,Hum.rec.anlog (Lantus Solostar), 45 UNITS SC QHS, (Reported) Insulin Human Lispro (Humalog), 1 DOSE SC AC, (Reported) L.acidoph/L.bulg/B.bif/S.therm (Bacid Caplet), 1 TAB PO DAILY, (Reported) Lisinopril (Lisinopril), 2.5 MG PO DAILY, (Reported) Multivitamins (Thera M Plus Tablet), 1 TAB PO DAILY, (Reported) Omeprazole (Omeprazole), 40 MG PO DAILY, (Reported) Timolol Maleate (Timoptic-Xe), 1 DROP OU DAILY, (Reported) Scheduled PRN Clotrimazole (Clotrimazole), 1 DOSE TOP BID PRN for ITCHING, (Reported) Fluticasone Propionate (Flonase Allergy Relief), 2 SPRAYS NA DAILY PRN for NASAL CONGESTION, (Reported) Current BP 114/70 Med Change: No Intervention Home exercise: Type (WALKING, HAND WEIGHTS, PLANNING TO JOIN MEET PROGRAM), Frequency (3-5 DAYS PER WEEK), Duration (30-60 MINUTES) Resistance Training: Yes Education: Self pulse (SEE EDUCATION ON PREVIOUS ITP) Education Goals Met: Yes Target Goals Individual exercise Rx (1) BP 140/90 or 130/80 if DM or CKD (1) Aerobic active 30+min 5 days per week (1) Nutrition Date: Aug 07, 2019 Assessment: Followup/Discharge Stages of change: Preperation Lipid- med/supplement ATORVASTATIN Med Change: No Diabetes Diabetes: Yes Fasting Blood Sugar: 198 Monitor Blood Sugar at home: Yes Medication Change: No Blood sugar in range: Yes Weight Management Weight (lbs): 273 Height (inches): 71 Waist Circumference (Inches): 56 Weight goal: 225 Special Diet: low salt, low-fat Diet Access Tool: Rate your plate Score: 47 Current Weight (pounds): 273 Weight Goal 225 Intervention Belt Back Operator Consult: No Nurse/patient discussion: Yes Diet Class: Yes (SAW LUDLOW MACHINE OPERATOR 07/01/19) Referral to Diabetes education: No Referral to lipid clinic: No Referral to weight mangement p: No Education S&S hypo/hyper glycemia, Relate Diabetes in CAD, Eating Healthy Education Goals Met: Yes Target goal LDL-C<100 if triglycerides are >200 Non-HDL-C should be <130 (1) LDL-C<70 for high risk patients (4) HbA1c<7% (1) BMI<25 Waist cir<40in M/<35in F (1) Education Date: Aug 07, 2019 Assessment: Followup/Discharge Learning Barriers: ready Knowledge Test Score: 7 Stages of change: Preperation Family Support: Yes Tobacco use: No Tobacco Use Smokeless tobacco: No Intervention Referral to smoking cessation: No Individual education and couns: No Tobacco Adjunct: No Education class schedule given: No Attended education classes: No Education: CAD, Risk factors, med compliance, cardiac A&P, Angina S/S, Sexuality Education Goals Met: Yes Target Goals Complete cessation of tobacco use (1). Psychosocial Date: Aug 07, 2019 Assessment: Followup/Discharge Psych Test (Initial/Discharge) Tool Used: Other (PHQ-9) Score: 0 Stages of change: Preperation Intervention Physician Consult: No Physician Referral: No Med Change: No Stress Management Class: No Uses Stress Management Skills: Yes Education Education: Coping Techniques, S/S depression, Relaxation Techniques Education Goals Met: Yes (PATIENT HAS BEEN RECEPTIVE TO EDUCATION AND HAS PROGRESSED WELL ON EQUIPMENT, PLANS TO JOIN MEET PROGRAM) Target Goal Assess presence or absence of depression using a valid screening tool (1). Maximize coping skills (2). Positive support system (2). Patient/Program Goal Preventative Medication: Yes Aspirin, Yes Beta blockade, Yes Statin/OTR lipid Lowering Fall Risk Assess: Yes (NOT A FALL RISK) Laz Degroot RN Aug 07, 2019 14:49
== END 2019-09-05 ==
LOC: M CR 10:07
PROVIDERS: ATTEND Internal Medicine Advanced Heart Failure and Transplant Cardiology
DX: Z95.1 Presence of aortocoronary bypass graft (principal)

== ENCOUNTER → 2019-08-20 | Outpatient (CLI) | payer OTHER ==
--- NOTE | 2019-08-20 18:54 | REP ---
Clinical: Follow-up deep venous thrombosis. Comparison: . Technique: Fernandez scale and color Doppler evaluation using linear high frequency transducer. Findings: Ultrasound examination of the left lower extremity deep venous structures from the common femoral vein to the popliteal vein demonstrates normal compressibility, flow and wave patterns in response to respiration and augmentation from the common femoral vein to the distal superficial femoral vein. Partial thrombus in the popliteal vein appears slightly improved compared to prior. Impression: Improved appearance with decreased thrombus at the popliteal vein. Electronically Signed by Hang Ortega MD 08/20/2019 06:46 P
== END ==
LOC: M RAD 10:11
PROVIDERS: ATTEND Nurse Practitioner Adult Health
DX: I82.432 Acute embolism and thrombosis of left popliteal vein (principal)

== ENCOUNTER → 2020-07-20 | Outpatient (CLI) | payer OTHER ==
[~2020-07-20] MED LIST changes: +AMLO1TAB24 PO; -AMLO5TAB6 PO; -LISI-1046 PO; +LISI2.5T2 PO
[2020-07-20 17:03] LABS: ALBUMIN 3.3 GM/DL (3.2-5.2); BILIRUBIN,TOTAL 0.4 MG/DL (0.2-1.0); CALCIUM LEVEL 9.3 MG/DL (8.8-10.2); CHOLESTEROL RISK RATIO 2.553 (<5); CREATININE FOR GFR 1.52 MG/DL (0.70-1.30); GLOMERULAR FILTRATION RATE 47.7 (>42); POTASSIUM SERUM 5.3 MEQ/L (3.5-5.1); TOTAL PROTEIN 6.6 GM/DL (6.4-8.2)
== END ==
LOC: M WUC 11:28
PROVIDERS: ATTEND Internal Medicine Advanced Heart Failure and Transplant Cardiology
DX: I10 Essential (primary) hypertension (principal)

== ENCOUNTER → 2022-05-23 | Outpatient (CLI) | payer OTHER ==
[~2022-05-23] MED LIST changes: -CLOT1CRE TOP; +CLOT28CR2 TOP; -GLUCTAB6 PO; +GLUCTAB7 PO; -LISI2.5T2 PO; +LISI2.5T9 PO; -OMEP-221 PO; +OMEP40CA5 PO
[2022-05-23 16:05] LABS: HEMATOCRIT 43.8 % (42.0-52.0); HEMOGLOBIN 13.8 g/dl (13.5-17.5); MEAN CORPUSCULAR HEMOGLOBIN 31.2 pg (27.0-33.0); MEAN CORPUSCULAR HGB CONC 31.5 g/dl (32.0-36.5); MEAN CORPUSCULAR VOLUME 98.9 fl (80.0-96.0); PLATELET COUNT, AUTOMATED 178 10^3/uL (150-450); RED BLOOD COUNT 4.43 10^6/uL (4.30-6.10); WHITE BLOOD COUNT 10.5 10^3/uL (4.0-10.0)
[2022-05-23 16:53] LABS: ALBUMIN 3.5 GM/DL (3.2-5.2); CALCIUM LEVEL 8.9 MG/DL (8.8-10.2); CHOLESTEROL RISK RATIO 2.421 (<5); CREATININE FOR GFR 1.67 MG/DL (0.70-1.30); GLOMERULAR FILTRATION RATE 42.7 (>42); PHOSPHORUS LEVEL 2.8 MG/DL (2.5-4.9); POTASSIUM SERUM 4.8 MEQ/L (3.5-5.1); THYROID STIMULATING HORMONE 0.695 uIU/ML (0.358-3.740)
[2022-05-23 17:02] LABS: MAU/CREAT RATIO 142.5 MCG/MG (0.0-30.0)
[2022-05-23 17:07] LABS: HEMOGLOBIN A1c 6.7 %
== END ==
LOC: M WUC 13:22
DX: E11.22 Type 2 diabetes mellitus with diabetic chronic kidney disease (principal); E11.65 Type 2 diabetes mellitus with hyperglycemia; N18.9 Chronic kidney disease, unspecified

== ENCOUNTER → 2022-08-10 | Outpatient (CLI) | payer OTHER ==
[2022-08-10 16:38] LABS: APPEARANCE, URINE MANUAL CLEAR (CLEAR); COLOR, URINE MANUAL LT YELLOW (YELLOW)
[2022-08-10 16:39] LABS: BILIRUBIN, URINE MANUAL NEGATIVE (NEGATIVE); BLOOD URINE MANUAL NEGATIVE (NEGATIVE); GLUCOSE, URINE (UA) MANUAL 4+(1000 MG/DL) mg/dL (NEGATIVE); KETONE, URINE MANUAL NEGATIVE (NEGATIVE); LEUKOCYTE ESTERASE, URINE MAN NEGATIVE (NEGATIVE); NITRITE, URINE MANUAL NEGATIVE (NEGATIVE); PROTEIN, URINE MANUAL TRACE mg/dL (NEGATIVE); UROBILINOGEN, URINE MANUAL NORMAL (NORMAL)
[2022-08-10 16:46] LABS: BASO % 0.3 % (0.0-1.0); EOS # 0.1 10^3/uL (0.0-0.5); EOS % 0.9 % (0.0-3.0); HEMATOCRIT 45.1 % (42.0-52.0); HEMOGLOBIN 14.4 g/dl (13.5-17.5); LYMPH # 3.1 10^3/uL (1.5-5.0); LYMPH % 21.2 % (24.0-44.0); MEAN CORPUSCULAR HEMOGLOBIN 31.7 pg (27.0-33.0); MEAN CORPUSCULAR HGB CONC 31.9 g/dl (32.0-36.5); MEAN CORPUSCULAR VOLUME 99.3 fl (80.0-96.0); MONO # 0.8 10^3/uL (0.0-0.8); MONO % 5.6 % (2.0-8.0); NEUTROPHILS # 10.5 10^3/uL (1.5-8.5); NEUTROPHILS % 71.1 % (36.0-66.0); PLATELET COUNT, AUTOMATED 197 10^3/uL (150-450); RED BLOOD COUNT 4.54 10^6/uL (4.30-6.10); WHITE BLOOD COUNT 14.7 10^3/uL (4.0-10.0)
[2022-08-10 17:21] LABS: BACTERIA, URINE NONE SEEN; HYALINE CAST, URINE NONE SEEN /lpf (0-1); RBC, URINE NONE SEEN /hpf (0-3); SQUAMOUS EPITHELIAL CELL URINE NONE SEEN /hpf (SMALL AMT); WBC, URINE 0-1 /hpf (0-3)
[2022-08-10 17:33] LABS: HEMOGLOBIN A1c 7.4 %
[2022-08-10 17:38] LABS: CREATININE, URINE 60.6 MG/DL; MALB URINE SIEMENS 81.8 MG/L; MAU/CREAT RATIO 134.9 MCG/MG (0.0-30.0)
[2022-08-10 17:41] LABS: ALBUMIN 3.3 GM/DL (3.2-5.2); BILIRUBIN,TOTAL 0.4 MG/DL (0.2-1.0); CALCIUM LEVEL 8.8 MG/DL (8.8-10.2); CHOLESTEROL RISK RATIO 2.088 (<5); CREATININE FOR GFR 1.61 MG/DL (0.70-1.30); FREE T4 1.16 NG/DL (0.76-1.46); GLOMERULAR FILTRATION RATE 44.4 (>42); POTASSIUM SERUM 4.6 MEQ/L (3.5-5.1); THYROID STIMULATING HORMONE 1.28 uIU/ML (0.358-3.740); TOTAL PROTEIN 6.4 GM/DL (6.4-8.2)
== END ==
LOC: M WUC 14:23
DX: I25.10 Atherosclerotic heart disease of native coronary artery without angina pectoris (principal)
CPT/HCPCS: 36415; 80053; 80061; 81000; 82043; 83036; 84439; 84443; 85025; G0103